=== PATIENT | male | born 1970 | race Caucasian/White ===

== ENCOUNTER 2016-03-20 13:05 | Emergency (ER) | payer SELFPAY ==
[2016-03-20 14:00] VITALS: TEMP 97.6; BMI 26.6
[2016-03-20 14:23] LABS: BLOOD UREA NITROGEN 8 MG/DL (9-20); CALCIUM 9.2 MG/DL (8.4-10.2); CALCULATED OSMOLALITY 268 MOs/Kg (270-290); CHLORIDE 104 mEq/L (98-107); CPK TOTAL WITH POSSIBLE MB 128 IU/L (55-170); GLUCOSE 86 MG/DL (70-99); SODIUM LEVEL 141 mEq/L (137-146); TOTAL PROTEIN 8.3 G/DL (6.3-8.2)
[2016-03-20 14:27] LABS: PARTIAL THROMB. TIME 26.8 SEC (22-35)
[2016-03-20 14:30] LABS: AUTOMATED BASOPHIL 0.4 % (0-2); AUTOMATED EOSINOPHIL 1.4 % (0-5); AUTOMATED LYMPH 26.4 % (17-44); AUTOMATED NEUTROPHIL 63.8 % (45-76); MPV 7.7 fL (7.4-10.4)
--- NOTE | 2016-03-20 14:32 | DIRPT ---
CLINICAL DATA: Altered mental status with confusion and difficulty speaking this morning. EXAM: CT HEAD WITHOUT CONTRAST TECHNIQUE: Contiguous axial images were obtained from the base of the skull through the vertex without intravenous contrast. COMPARISON: 06/11/2013 FINDINGS: No mass lesion. No midline shift. No acute hemorrhage or hematoma. No extra-axial fluid collections. No evidence of acute infarction. Brain parenchyma is normal. Osseous structures are normal except for mucosal thickening of the right maxillary sinus. IMPRESSION: No significant abnormality.Chronic mucosal changes in the right maxillary sinus. Electronically Signed By: Abraham Munoz M.D. On: 03/20/2016 14:30
[2016-03-20 15:10] LABS: LEUKOCYTES/URINE NEG (NEGATIVE); NITRITE/URINE NEG (NEGATIVE); URINE OCCULT BLOOD NEG (NEG/TRACE)
[2016-03-20] MEDS ORDERED: KETOROLAC TROMETH 30 MG/ML VIAL IV ONE (15:14)
[2016-03-20] MEDS ORDERED: DIPHENHYDRAMINE 50 MG/ML VIAL IV ONE (15:14)
[2016-03-20] MEDS ORDERED: NS 1,000 ML IV ONE (15:14)
[2016-03-20] MEDS ORDERED: METOCLOPRAMIDE 10 MG/2 ML VIAL IV ONE (15:14)
[2016-03-20] MEDS ORDERED: LABETALOL 20 MG/4 ML SYRINGE IV ONE (15:14)
--- NOTE | 2016-03-20 15:53 | DIRPT ---
CLINICAL DATA: Weakness EXAM: CHEST - 2 VIEW COMPARISON: None. FINDINGS: The heart size and mediastinal contours are within normal limits. Both lungs are clear. The visualized skeletal structures are unremarkable. IMPRESSION: No active disease. Electronically Signed By: Young Vincent M.D. On: 03/20/2016 15:51
--- NOTE | 2016-03-20 16:00 | EDPRACDOC ---
- General Information Chief Complaint: Blood Pressure (Problems) Stated Complaint: ELEVATED BP Time Seen by Provider: 03/20/16 15:05 Information Source: Patient Mode Of Arrival: Car Home Medications: Home Medications Metoprolol Succinate (XL) [Toprol Xl] 25 mg PO DAILY #30 tab 03/20/16 Allergies/Adverse Reactions: Allergies Allergy/AdvReac Type Severity Reaction Status Date / Time codeine [Codeine] Allergy Rash-Genera Verified 03/20/16 13:55 lized - History of Present Illness Onset: 10 am HPI: PT PRESENTS STATING EARLIER TODAY HE GOT A HEADACHE AND HEAVINESS OVER HIS ENTIRE BODY. STATES THE LAST TIME THIS OCCURRED HE HAD HYPERTENSION. STATES HE CURRENTLY DOES NOT TAKE ANY MEDICATIONS. PT IS A CURRENT SMOKER WITH BOTH PARENTS WHO OF [place]. Highest Known BP [employer]: Unknown Symptoms: Reports: Mild Circumstances: Reports: Spontaneous Onset Relevent History of: Reports: Hypertension Hypertension Treatment: Reports: Not on Treatment Recent Use of: Reports: None Associated Signs and Symptoms: Reports: Headache ED Past Medical History - History Reviewed Yes Nurses notes reviewed and agree except as marked - Patient Medical History Cardiac History: Reports: Hypertension (borderline) GI/ History: Reports: Gastroesophageal Reflux Psychological History: Denies: Depression Systemic History: Denies: Cancer - Social Medical History Smoking Status: Heavy tobacco smoker (5 or more cigarettes/day or daily pipe/ cigar) Social History: Reports: Marijuana Use EDM Review of Systems - Review of Systems ROS Negative Except as Marked: Yes All systems reviewed and were negative except as marked - Physical Exam Constitutional: Alert Oriented to: Time, Person, Place Last recorded Vital Signs: Last Vital Signs Temp 97.6 F 03/20/16 13:55 Pulse 66 03/20/16 15:13 Resp 20 03/20/16 15:13 BP 163/93 03/20/16 15:13 Pulse Ox 97 03/20/16 15:13 Oxygen Pulse Oxygen Saturation 97 O2 Device Room Air Oxygen Flow Rate Fraction of Inspired Oxygen ( FIO2) - HEENT Head: Normal ( normocephalic) Eye Exam: Normal (PERRL, EOMI, Sclera white) Oropharynx: Normal (Pharynx:Moist without exudate,Gums-no swelling) Tympanic Membrane: Normal Nose: No Symptoms Reported (septum midline) Neck: Normal (FROM, trachea at midline) - Respiratory/Cardiovascular Respiratory: Normal - CTA (BBS clear to auscultation without adventitious sounds ) Cardiovascular: Normal (RRR without murmur, gallop or rub) - GI Auscultation: Normal (NABS) Palpation: Normal (Soft,No rebound or guarding, non distended) Tenderness: Non tender Menendez's Sign: Negative Rectal Exam: Deferred - Musculoskeletal Back: Normal (Non-Tender) Extremities: Normal (Normal tone, Pulses 2+ No cyanosis or edema, FROM) - Integumentary Skin: Normal, Warm, Dry Lymphatics: Normal (no adenopathy) - Neurologic Memory Impaired: Normal Motor Function: Normal (Normal tone, Pulses 2+ No cyanosis or edema, FROM) Cranial Nerve: Normal (CN II-X11 intact sensation, strength 5/5) Cerebellar: Normal Mood Description: Normal Perception: Normal - Differential Diagnosis Hypertension, Essential - Results 03/20/16 14:03 03/20/16 14:03 WBC 7.6 xk/uL (3.8-10.8) 03/20/16 14:03 RBC 5.17 xM/uL (4.70-6.10) 03/20/16 14:03 Hgb 15.9 g/dL (14.0-18.0) 03/20/16 14:03 Hct 46.8 % (42-52) 03/20/16 14:03 MCV 91 fL (80-94) 03/20/16 14:03 MCH 30.8 pg (27-32) 03/20/16 14:03 MCHC 34.0 g/dl (33-36) 03/20/16 14:03 RDW 13.1 % (11.5-14.5) 03/20/16 14:03 Plt Count 268 xk/uL (130-400) 03/20/16 14:03 MPV 7.7 fL (7.4-10.4) 03/20/16 14:03 Neut % (Auto) 63.8 % (45-76) 03/20/16 14:03 Lymph % (Auto) 26.4 % (17-44) 03/20/16 14:03 [place] % (Auto) 8.0 % (3-10) 03/20/16 14:03 Eos % (Auto) 1.4 % (0-5) 03/20/16 14:03 Baso % (Auto) 0.4 % (0-2) 03/20/16 14:03 Absolute Neuts (auto) 4.79 xk/uL (1.7-8.2) 03/20/16 14:03 Absolute Lymphs (auto) 1.98 xk/uL (0.65-4.75) 03/20/16 14:03 PT 10.7 SEC (9.2-11.2) 03/20/16 14:03 INR 1.0 03/20/16 14:03 APTT 26.8 SEC (22-35) 03/20/16 14:03 Sodium 141 mEq/L (137-146) 03/20/16 14:03 Potassium 3.9 mEq/L (3.5-5.1) 03/20/16 14:03 Chloride 104 mEq/L (98-107) 03/20/16 14:03 Carbon Dioxide 26 mMOL/L (22-33) 03/20/16 14:03 Anion Gap 15 mEq/L (8-16) 03/20/16 14:03 BUN 8 MG/DL (9-20) L 03/20/16 14:03 Creatinine 0.80 MG/DL (0.66-1.25) 03/20/16 14:03 Estimated GFR (MDRD) > 60 mL/min (>=60) 03/20/16 14:03 Glucose 86 MG/DL (70-99) 03/20/16 14:03 Calculated Osmolality 268 MOs/Kg (270-290) L 03/20/16 14:03 Calcium 9.2 MG/DL (8.4-10.2) 03/20/16 14:03 Total Bilirubin 0.5 MG/DL (0.2-1.3) 03/20/16 14:03 AST 30 IU/L (17-59) 03/20/16 14:03 ALT 31 IU/L (21-72) 03/20/16 14:03 Alkaline Phosphatase 61 IU/L (38-126) 03/20/16 14:03 Creatine Kinase 128 IU/L (55-170) 03/20/16 14:03 Troponin I < 0.01 ng/mL (<.04) 03/20/16 14:03 Ygu-I-Gflmqhtkern Pept 42 pg/mL (0-450) 03/20/16 14:03 Total Protein 8.3 G/DL (6.3-8.2) H 03/20/16 14:03 Albumin 4.6 G/DL (3.5-5.0) 03/20/16 14:03 Urine Color Pale yellow 03/20/16 14:42 Urine Clarity Clear 03/20/16 14:42 Urine pH 7.0 (5.0-8.0) 03/20/16 14:42 Ur Specific [place] 1.005 (1.003-1.035) 03/20/16 14:42 Urine Protein Neg (NEG/TRACE) 03/20/16 14:42 Urine Glucose (UA) Neg (NEGATIVE) 03/20/16 14:42 Urine Ketones Neg (NEGATIVE) 03/20/16 14:42 Urine Occult Blood Neg (NEG/TRACE) 03/20/16 14:42 Urine Nitrite Neg (NEGATIVE) 03/20/16 14:42 Urine Bilirubin Neg (NEGATIVE) 03/20/16 14:42 Urine Urobilinogen <2.0 MG/DL (0-1) 03/20/16 14:42 Ur Leukocyte Esterase Neg (NEGATIVE) 03/20/16 14:42 Urine WBC 2-5 (0-2) H 03/20/16 14:42 Ur Epithelial Cells Occ 03/20/16 14:42 Urine Bacteria Few (NEG/FEW) 03/20/16 14:42 Lab Results 03/20/16 03/20/16 03/20/16 14:42 14:03 14:03 WBC 7.6 RBC 5.17 Hgb 15.9 Hct 46.8 MCV 91 MCH 30.8 MCHC 34.0 RDW 13.1 Plt Count 268 MPV 7.7 Neut % (Auto) 63.8 Lymph % (Auto) 26.4 [place] % (Auto) 8.0 Eos % (Auto) 1.4 Baso % (Auto) 0.4 Absolute Neuts (auto) 4.79 Absolute Lymphs (auto) 1.98 PT 10.7 INR 1.0 APTT 26.8 Sodium Potassium Chloride Carbon Dioxide Anion Gap BUN Creatinine Estimated GFR (MDRD) Glucose Calculated Osmolality Calcium Total Bilirubin AST ALT Alkaline Phosphatase Creatine Kinase Troponin I [id number] Pept Total Protein Albumin Urine Color Pale yellow Urine Clarity Clear Urine pH 7.0 Ur Specific [place] 1.005 Urine Protein Neg Urine Glucose (UA) Neg Urine Ketones Neg Urine Occult Blood Neg Urine Nitrite Neg Urine Bilirubin Neg Urine Urobilinogen <2.0 Ur Leukocyte Esterase Neg Urine WBC 2-5 H Ur Epithelial Cells Occ Urine Bacteria Few 03/20/16 14:03 WBC RBC Hgb Hct MCV MCH MCHC RDW Plt Count MPV Neut % (Auto) Lymph % (Auto) [place] % (Auto) Eos % (Auto) Baso % (Auto) Absolute Neuts (auto) Absolute Lymphs (auto) PT INR APTT Sodium 141 Potassium 3.9 Chloride 104 Carbon Dioxide 26 Anion Gap 15 BUN 8 L Creatinine 0.80 Estimated GFR (MDRD) > 60 Glucose 86 Calculated Osmolality 268 L Calcium 9.2 Total Bilirubin 0.5 AST 30 ALT 31 Alkaline Phosphatase 61 Creatine Kinase 128 Troponin I < 0.01 [id number] Pept 42 Total Protein 8.3 H Albumin 4.6 Urine Color Urine Clarity Urine pH Ur Specific [place] Urine Protein Urine Glucose (UA) Urine Ketones Urine Occult Blood Urine Nitrite Urine Bilirubin Urine Urobilinogen Ur Leukocyte Esterase Urine WBC Ur Epithelial Cells Urine Bacteria Decision Time to Discharge: 16:01 - Departure Disposition: Home Condition: Stable Final Diagnosis: Hypertension Qualifiers: Hypertension type: essential hypertension Qualified Code(s): I10 - Essential ( primary) hypertension Instructions: Chronic Hypertension (ED) Education/Counseling Given To: Patient Education/Counseling Given Regarding: Diagnosis, Treatment, Prognosis, Follow Up Referrals: Damon Charles II, MD [Staff Physician] - One Week Prescriptions: Metoprolol Succinate (XL) [Toprol Xl] 25 mg PO DAILY #30 tab Additional Instructions: BEGIN TAKING METOPROL IN THE MORNING. FOLLOW UP WITH PCP NEXT WEEK. RETURN TO THE ED FOR WORSENING SYMPTOMS OR CONCERNS
[2016-03-20 16:55] VITALS: BP 142/87
[2016-03-20 16:56] VITALS: PULSE 69
== END 2016-03-20 16:55 | disposition home or self-care (01) ==
LOC: ED 13:05
DX: I10 Essential (primary) hypertension (principal)
CPT/HCPCS: 36415; 70450; 71020; 80053; 81001; 82550; 83880; 84484; 85025; 85610; 85730; 93005; 96361; 96374; 96375; 99284; J1200; J1885; J2765; J3490